=== PATIENT | male | born 1965 | race Caucasian/White ===

== ENCOUNTER 2020-09-24 15:18 | Emergency (ER) | payer OTHER ==
[~2020-09-24] VITALS: Ht 172.7 cm; Wt 70.5 kg
[2020-09-24 15:25] VITALS: BP 131/96
[2020-09-24] MEDS ORDERED: ISOS30TA92 PO (15:28)
[2020-09-24] MEDS ORDERED: ASPI-989 PO (15:28)
[2020-09-24] MEDS ORDERED: LIDOCAINE 5% TRANSDERMAL PATCH TD ONE (15:45)
[2020-09-24] MEDS ORDERED: METHOCARBAMOL 500 MG TABLET PO ONE (15:45)
[2020-09-24] MEDS ORDERED: KETOROLAC TROMETHAMINE 10 MG TABLET PO ONE (15:45)
== END 2020-09-24 16:41 | disposition home or self-care (01) ==
LOC: EMS 15:20
DX: S29.012A Strain of muscle and tendon of back wall of thorax, initial encounter (principal); M25.512 Pain in left shoulder; M54.2 Cervicalgia; I51.9 Heart disease, unspecified; Z79.82 Long term (current) use of aspirin; X58.XXXA Exposure to other specified factors, initial encounter; Y93.89 Activity, other specified; Y92.89 Other specified places as the place of occurrence of the external cause; Y99.8 Other external cause status
CPT/HCPCS: 99284; Z7502; Z7610